=== PATIENT | female | born 1970 | race Caucasian/White ===

== ENCOUNTER 2024-10-29 13:09 | Emergency (ER) | payer OTHER, SELFPAY ==
[2024-10-29 13:11] VITALS: BP 158/97
--- NOTE | 2024-10-29 14:17 | ED.GENMED ---
History of Present Illness
General
Chief Complaint: Musculo-Skeletal Complaint
Source: patient
Exam Limitations: none
Time Seen by Provider: 10/29/24 13:44
Nursing documentation reviewed up to this point in time: agreed with
History of Present Illness
History of Present Illness:
Patient is a 54-year-old female presenting with left lower extremity injury and pain. Patient tripped and fell, but is not sure what she tripped on. Patient is endorsing pain on the anterior and lateral aspects of her ankle. Patient states it is
tender to the touch. Patient is having some difficulty flexing and extending from the ankle. Patient denies all other ROS.
Review of Systems
Review of Systems
Allergies reviewed?: Yes
All Other Systems: ROS reviewed and negative except as documented in HPI and ROS
Constitutional: Reports no symptoms
EENT: Reports no symptoms
Respiratory: Reports no symptoms
Cardiac: Reports no symptoms
ABD/GI: Reports no symptoms
: Reports no symptoms
Musculoskeletal: Reports other (Injury to left ankle)
Skin: Reports no symptoms
Neurological: Reports no symptoms
Endocrine: Reports no symptoms
Hematologic/Lymphatic: Reports no symptoms
Psychiatric: Reports no symptoms
Phy Exam
General Physical Exam
General Presentation: well appearing and no apparent distress
Neurological Exam
Neurological Exam: alert and oriented x3
Musculoskeletal Exam
Musculoskeletal Exam: other (Left ankle tender to palpation anteriorly and laterally)
Psychiatric Exam
Psychiatric Exam: normal mood/affect
Course
Orders/Labs/Results
Orders:
Orders
10/29/24 13:18
Ankle, left 3 view CR [CR Ankle - Left Min 3 Views ] Urgent
Comment:
Reason For Exam: injury
Foot, Left 3 View [CR Foot - Left Min 3 Views] Urgent
Comment:
Reason For Exam: injury
10/29/24 14:16
Air Splint Left-Treatment ONCE
Crutches-Treatment ONCE
Ketorolac [Toradol] 30 mg IM NOW STA
Vital Signs
Initial and Last Documented VS:
Initial Vital Signs
Temp Pulse Resp BP Pulse Ox
98.3 F 88 16 158/97 98
10/29/24 13:11 10/29/24 13:11 10/29/24 13:11 10/29/24 13:11 10/29/24 13:11
Last Documented Vital Signs
Temp Pulse Resp BP Pulse Ox
98.3 F 88 16 158/97 98
10/29/24 13:11 10/29/24 13:11 10/29/24 13:11 10/29/24 13:11 10/29/24 14:18
MDM/Problems Addressed
Differential Diagnosis Includes:
Ankle sprain
MDM/Problems Addressed:
Patient had a foot and ankle x-ray which showed no evidence of acute fracture or dislocation. Patient is endorsing pain to palpation and at rest. Will give 1 dose of Toradol 30 mg IM for pain management and will provide crutches and foot splint.
Patient okay for discharge
*Radiology
Radiology exam reviewed: preliminary read by ED provider and radiology read reviewed (No evidence of acute fracture or dislocation.)
*Pulse Oximetry
SaO2: 98
Oxygen Mode of Delivery: Room air
Patient hypoxic: no
*Critical Care Note
Total Time (30-74mins, 75-104mins- exclusive of procedures): Not Applicable
ED Attending Note
-
Portions of this chart may have been created with voice recognition software.� Occasional wrong word or��sound alike� substitutions may have occurred due to the inherent limitations of voice recognition software.
Discharge Plan
Departure
Patient Disposition: Shelter
Date of Disposition: 10/29/24
Time of Disposition: 14:22
Patient with high blood pressure during this ER visit?: Yes
Discharge Problem:
Ankle sprain
Instructions: Ankle sprain - ED discharge instructions, BLOOD PRESSURE
Referrals:
[facility] [Family Provider, General]
Activity Restrictions/Additional Instructions:
Rest, ice and elevate the ankle. Crutches and air splint provided for support. Take Motrin as needed to reduce pain and swelling.
Interventions
Interventions:
*Risk Screen - Suicide Last Done: 10/29/24 13:14
*General Assessment Last Done: 10/29/24 13:14
*Neglect/Abuse Screening Last Done: 10/29/24 13:14
*ED- Fall Risk Assessment Last Done: 10/29/24 13:14
*ED COVID-19 Vaccine History Last Done: 10/29/24 13:14
ED-Musculoskeletal Assessment Last Done: 10/29/24 13:19
Discharge Date and Time
Print Language: MACEDONIAN
[2024-10-29] MEDS: TORADOL 30 MG IM (14:39)
[2024-10-29 14:53] VITALS: BP 114/62
== END 2024-10-29 14:53 ==
LOC: EMR 13:09
PROVIDERS: EMERGENCY PHYSICIAN Emergency Medicine
DX: S93.402A Sprain of unspecified ligament of left ankle, initial encounter (principal); W01.0XXA Fall on same level from slipping, tripping and stumbling without subsequent striking against object, initial encounter
CPT/HCPCS: 99283; 96372; 73610; 73630